=== PATIENT | female | born 1995 | race Caucasian/White ===

== ENCOUNTER 2024-05-21 06:42 | Emergency (ER) | payer BC ==
[2024-05-21 08:13] VITALS: BP 122/79; PULSE 87
== END 2024-05-21 08:00 | disposition home or self-care (01) ==
LOC: FB.ED 06:42
DX: O9A.213 Injury, poisoning and certain other consequences of external causes complicating pregnancy, third trimester (principal); S01.01XA Laceration without foreign body of scalp, initial encounter; O42.92 Full-term premature rupture of membranes, unspecified as to length of time between rupture and onset of labor; Z79.899 Other long term (current) drug therapy; W00.0XXA Fall on same level due to ice and snow, initial encounter; Z3A.38 38 weeks gestation of pregnancy
CPT/HCPCS: 99283